=== PATIENT | male | born 1955 | race Caucasian/White ===

== ENCOUNTER → 2018-12-14 | Outpatient (CLI) | payer BC ==
--- NOTE | 2018-12-14 19:21 | REP ---
Clinical: Right upper chest pain . Comparison: None . Technique: PA and lateral. Findings: The mediastinum and cardiac silhouette are normal. The lung contreras are clear and without acute consolidation, effusion, or pneumothorax. The skeletal structures are intact and normal. Impression: 1. No acute cardiopulmonary process. Electronically Signed by Bo Sparks MD 12/14/2018 07:13 P
== END ==
LOC: M WUC 18:48
PROVIDERS: ATTEND Physician Assistant
DX: R07.9 Chest pain, unspecified (principal)

== ENCOUNTER → 2023-07-23 | Outpatient (CLI) | payer BC ==
[~2023-07-23] MED LIST: ATOR80TA59 PO; ECOT81TA5 PO; LISI10TA22 PO; METO1TAB32 PO; RANO500T2 PO; TRAM50TA2 PO
[2023-07-23] MEDS: LIDOCAINE 2% MDV 20ML VIAL SC ONE (11:22)
== END ==
LOC: M ONCR 09:47
PROVIDERS: ATTEND General Practice
DX: C79.31 Secondary malignant neoplasm of brain (principal); C77.0 Secondary and unspecified malignant neoplasm of lymph nodes of head, face and neck; R91.8 Other nonspecific abnormal finding of lung field; Z71.2 Person consulting for explanation of examination or test findings; Z80.1 Family history of malignant neoplasm of trachea, bronchus and lung; Z79.82 Long term (current) use of aspirin; Z79.899 Other long term (current) drug therapy; Z87.891 Personal history of nicotine dependence; Z91.048 Other nonmedicinal substance allergy status

== ENCOUNTER → 2023-07-24 | Outpatient (CLI) | payer BC ==
[~2023-07-24] MED LIST changes: +PROHANCE 279.3MG/ML 15ML VIAL As Ordered ONE
== END ==
LOC: M RAD 16:07
PROVIDERS: ATTEND General Practice
DX: C79.31 Secondary malignant neoplasm of brain (principal)
CPT/HCPCS: 70553; A9576

== ENCOUNTER → 2023-08-11 | Outpatient (CLI) | payer BC ==
[~2023-08-11] MED LIST changes: +ALBU6.7H6 INH; +BENZ200C70 PO; +DEXA4TA PO; +FLUT1BLS8 IH; +HYDR-3713 PO; +HYDR-4571 PO; -PROHANCE 279.3MG/ML 15ML VIAL As Ordered ONE
== END ==
LOC: M PLARAD 09:49
PROVIDERS: ATTEND Student in an Organized Health Care Education/Training Program
DX: C80.1 Malignant (primary) neoplasm, unspecified (principal)

== ENCOUNTER → 2023-08-14 | Outpatient (RCR) | payer BC | LOC: M ONCR 07-29 13:41 | PROVIDERS: ATTEND General Practice | DX: Z51.0 Encounter for antineoplastic radiation therapy (principal); C79.31 Secondary malignant neoplasm of brain ==

== ENCOUNTER 2023-08-18 13:22 | Outpatient (RCR) | payer BC ==
[2023-09-01] MEDS ORDERED: ATIV1TAB10 PO (14:55)
[2023-09-02] MEDS ORDERED: TRAN1DIS4 TOP (14:03)
[2023-09-02] MEDS ORDERED: MORP1SOL PO ×2 (14:06→14:09)
[2023-09-02] MEDS ORDERED: ONDA8TAB8 PO (14:08)
[2023-09-02] MEDS ORDERED: MORP1SOL4 PO (14:24)
[2023-09-04] MEDS ORDERED: HOSPITAL BED XX (13:16)
[2023-09-04] MEDS ORDERED: BEDSIDE COMMODE XX (13:32)
== END 2023-09-14 ==
LOC: M ONCR 13:22
PROVIDERS: ATTEND General Practice
DX: Z51.0 Encounter for antineoplastic radiation therapy (principal); C79.31 Secondary malignant neoplasm of brain